=== PATIENT | female | born 1960 | race Caucasian/White ===

== ENCOUNTER 2024-05-10 07:28 | Emergency (ER) | payer OTHER, SELFPAY ==
[2024-05-10 07:30] VITALS: BP 119/77
--- NOTE | 2024-05-10 07:40 | ED.GENMED ---
History of Present Illness
General
Chief Complaint: Abdominal Pain
Source: patient
Exam Limitations: none
Time Seen by Provider: 05/10/24 07:33
Nursing documentation reviewed up to this point in time: agreed with
History of Present Illness
History of Present Illness:
64-year-old female with history of diverticulitis, endometriosis with laparoscopy and ablation, presents for being awakened at 3:30 AM with sudden onset pain across her lower abdomen from the bellybutton down. Pain now 8/10. She also has pressure
in her rectum and lower back. She had a small formed bowel movement last night. She denies fever or chills. Denies vomiting but does feel nauseous. Her last episode of diverticulitis was about 3 years ago and she states this feels similar.
Past History
Past History
ED Past Medical History: Other (Diverticulitis)
ED Past Surgical History: Gynecological (Laparoscopy and ablation for endometriosis)
Social History
Tobacco: Non-smoker
Alcohol: Occasional
Personal:
Living: with family
Employment: Employed
Review of Systems
Review of Systems
Allergies reviewed?: Yes
All Other Systems: ROS reviewed and negative except as documented in HPI and ROS
Constitutional: Denies fever or chills
Respiratory: Denies trouble breathing
Cardiac: Denies chest pain
ABD/GI: Reports abdominal pain and nausea; Denies vomiting, diarrhea, bloody stools or black stools
: Denies dysuria, frequency or difficulty voiding
Musculoskeletal: Reports no symptoms
Skin: Reports no symptoms
Neurological: Reports no symptoms
Phy Exam
Physical Exam
Physical Exam:
GENERAL: Mild distress due to abdominal pain. A&Ox3.
CONSTITUTIONAL: Afebrile.
EYES: clear, conjunctivae normal
ENMT: moist mucus membranes
RESPIRATORY: Regular respirations, nonlabored, lungs clear.
CARDIOVASCULAR: Regular rate and rhythm, no murmurs, no rubs.
GI: Soft, tender from mid lower abdomen to left lower abdomen, normal BS
MUSCULOSKELETAL: Moves with ease. Well perfused.
SKIN: Warm, dry, pink
PSYCH: Normal mood and affect. Well kept, interactive and appropriate
NEUROLOGIC: Awake, alert and oriented. No focal neurological deficits
Course
Orders/Labs/Results
Orders:
Orders
05/10/24 07:38
Ketorolac [Toradol] 15 mg IV NOW STA
05/10/24 07:39
CT Abd/Pel (IV only)-DH only Urgent
Comment:
Reason For Exam: pain across lower abd, hx divertic
0.9% Sodium Chloride 1000 ml [Nss] 1,000 ml IV BOLUS
Ondansetron Injectable [Zofran] 4 mg IV NOW STA
05/10/24 07:56
Complete Blood Count/With Diff Urgent
Comprehensive Metabolic Panel Urgent
Lipase Urgent
Urinalysis Reflex To Culture Urgent
Date Specimen was Collected: 05/10/24
Time Specimen was Collected: 07:46
Urine Microscopic Reflex Cult Urgent
Urine Culture Urgent
JEM Source: U
Specimen Description:
Date Specimen was Collected: 05/10/24
Time Specimen was Collected: 07:46
05/10/24 08:01
Morphine Sulfate 4 mg IV NOW STA
05/10/24 08:02
Morphine Sulfate 4 mg .ROUTE .STK-MED ONE
05/10/24 09:38
Amoxicillin 875 mg/Clav 125 mg [Augmentin 875 mg/125 mg] 1 tablet PO NOW STA
Abnormal Lab Results
05/10/24
07:56
RBC 3.87 L 10^6/uL
(4.20-5.40)
Hgb 11.5 L g/dL
(12.0-16.0)
Hct 34.3 L %
(37.0-47.0)
Absolute Lymphs (auto) 1.0 L 10^3/uL
(1.2-3.4)
Neutrophils % 78.4 H %
(42.2-75.2)
Lymphocytes % 13.1 L %
(20.5-51.1)
Leukocyte Esterase Rfl 1+ A
(Negative)
Urine Bacteria (Reflex) Few A
(Negative)
05/10/24 07:56
05/10/24 07:56
Vital Signs
Initial and Last Documented VS:
Initial Vital Signs
Temp Pulse Resp BP Pulse Ox
99.2 F 94 18 119/77 98
05/10/24 07:30 05/10/24 07:30 05/10/24 07:30 05/10/24 07:30 05/10/24 07:30
Last Documented Vital Signs
Temp Pulse Resp BP Pulse Ox
98.1 F 70 16 99/71 96
05/10/24 08:00 05/10/24 09:33 05/10/24 09:33 05/10/24 10:01 05/10/24 10:15
MDM/Problems Addressed
Differential Diagnosis Includes:
Diverticulitis, constipation, renal colic
MDM/Problems Addressed:
64-year-old female with history of diverticulitis, endometriosis with laparoscopy and ablation, presents for being awakened at 3:30 AM with sudden onset pain across her lower abdomen from the [facility] down. Pain now 8/10. She also has pressure
in her rectum and lower back. She had a small formed bowel movement last night. She denies fever or chills. Denies vomiting but does feel nauseous. Her last episode of diverticulitis was about 3 years ago and she states this feels similar.
Afebrile, NAD
Had a colonoscopy last year at [place]
9:15 AM:
CBC: No clinically significant abnormality
CMP normal
UA unremarkable
9:30 AM:
CT abdomen pelvis with IV only contrast radiology report read: Acute sigmoid diverticulitis. No CT evidence for perforation or pericolonic abscess.
Patient feeling much better after pain medications
Stable for discharge
Rx for Augmentin sent to her pharmacy
*Critical Care Note
Total Time (30-74mins, 75-104mins- exclusive of procedures): Not Applicable
ED Attending Note
-
Portions of this chart may have been created with voice recognition software.� Occasional wrong word or��sound alike� substitutions may have occurred due to the inherent limitations of voice recognition software.
Discharge Plan
Departure
Patient Disposition: Home (Routine Discharge)
Date of Disposition: 05/10/24
Time of Disposition: 09:38
Patient with high blood pressure during this ER visit?: No
Condition: Good
Discharge Problem:
Acute diverticulitis
Instructions: Clear Liquid Diet, Diverticulitis (DC)
Prescriptions:
New
amoxicillin-pot clavulanate 875-125 mg tablet
1 tab PO BID Qty: 19 0RF
tramadol 50 mg tablet
50 mg PO Q8H PRN (Reason: Pain) Qty: 7 0RF
No Action
naproxen sodium [Aleve] 220 MG tablet
1 - 2 tab PO [id number] PRN (Reason: lower back pain)
Referrals:
Karen Cyr MD [Active] - Next open appointment
Hector Crespo DO [Family Provider] -
Activity Restrictions/Additional Instructions:
As we discussed, clear liquid diet for today to give your bowel rest
Return here immediately for worsening abdominal pain, fever, vomiting or feeling sicker in any way
Otherwise call the GI doctors office and make next available appointment.
Tylenol as needed for pain
Interventions
Interventions:
*Risk Screen - Suicide Last Done: 05/10/24 08:00
*General Assessment Last Done: 05/10/24 08:00
*Neglect/Abuse Screening Last Done: 05/10/24 08:00
ED- Fall Risk Assessment Last Done: 05/10/24 08:00
*ED COVID-19 Vaccine History Last Done: 05/10/24 08:00
*Nursing Disposition Last Done: 05/10/24 10:16
SK-Oouzgc-Dbsmqnxoen Assessment Last Done: 05/10/24 08:00
Discharge Date and Time
Discharge Date/Time: 05/10/24 10:22
Print Language: [place]
[2024-05-10 08:00] VITALS: BP 109/62; BMI 22.7
[2024-05-10] MEDS: MORPHINE SULFATE 4 MG IV (08:02)
[2024-05-10] MEDS: ZOFRAN 4 MG IV (08:02)
[2024-05-10] MEDS: TORADOL 15 MG IV (08:03)
[2024-05-10 08:05] LABS: % Basophils 0.6 % (0-2); % Eosinophils 1.2 % (0-6); % Immature Granulocytes 0.4 % (0-0.5); % Lymphocytes 13.1 % (20.5-51.1); % Monocytes 6.3 % (1.7-9.3); % Neutrophils 78.4 % (42.2-75.2); Absolute Basophils 0.1 10^3/uL (0-0.2); Absolute Eosinophils 0.1 10^3/uL (0-0.7); Absolute Monocytes 0.5 10^3/uL (0.1-0.6); Absolute Neutrophils 6.1 10^3/uL (1.4-6.5); Hematocrit 34.3 % (37.0-47.0); Hemoglobin 11.5 g/dL (12.0-16.0); Mean Corp Hgb Conc. 33.5 g/dL (33.0-37.0); Mean Corpuscular Hgb 29.7 pg (27.0-31.0); Mean Corpuscular Volume 88.6 fL (81.0-99.0); Mean Platelet Volume 10.1 fL (7.4-10.4); Nucleated Red Blood Cells % 0 %; Platelet Count 241 10^3/uL (130-400); Red Blood Cell Count 3.87 10^6/uL (4.20-5.40); Red Cell Dist. Width 12.5 % (11.5-14.5); White Blood Cell Count 7.7 10^3/uL (4.8-10.8)
[2024-05-10] MEDS: NSS 1000 IV (08:06)
[2024-05-10 08:07] LABS: Urine Albumin Negative (Neg - Trace); Urine Bilirubin Negative (Negative); Urine Character Clear (Clear); Urine Color Yellow; Urine Glucose Negative (Negative); Urine Ketone Negative (Negative); Urine Leukocyte 1+ (Negative); Urine Nitrite Negative (Negative); Urine Occult Blood Negative (Negative); Urine Urobilinogen Negative (Neg - 1+)
[2024-05-10 08:22] LABS: ALT (SGPT) 14 U/L (0-35); AST (SGOT) 18 U/L (14-36); Albumin 4.2 g/dl (3.5-5.0); Alkaline Phosphatase 81 U/L (38-126); Blood Urea Nitrogen 16 mg/dl (7-17); Calcium 9.3 mg/dl (8.4-10.2); Carbon Dioxide 30 mmol/L (22-30); Chloride 103 mmol/L (98-107); Estimated Creatinine Clearance 81 ml/min; Glucose 97 mg/dl (70-99); Potassium 4.1 mmol/L (3.5-5.1); Sodium 139 mmol/L (135-145); Total Protein 6.6 g/dl (6.3-8.2); eGFR > 60.00
[2024-05-10 08:25] LABS: Urine Mucus Few; Urine Squamous Cell >30 /LPF (Few)
[2024-05-10 08:26] LABS: Urine Bacteria Few (Negative)
[2024-05-10 08:27] LABS: Urine Red Blood Cell 0-2 /HPF (0-2)
[2024-05-10 09:21] VITALS: BP 108/83
[2024-05-10 09:21] LABS: Lipase 92 U/L (23-300)
[2024-05-10 09:33] VITALS: BP 108/83
[2024-05-10 10:01] VITALS: BP 99/71
[2024-05-10] MEDS: AUGMENTIN 875 MG/125 MG 1 TABLET PO (10:19)
== END 2024-05-10 10:22 | disposition home or self-care (01) ==
LOC: EMR 07:28
PROVIDERS: Registered Nurse; EMERGENCY PHYSICIAN Emergency Medicine; FAMILY PHYSICIAN Family Medicine
DX: K57.32 Diverticulitis of large intestine without perforation or abscess without bleeding (principal)
CPT/HCPCS: 96374; 96375; 96361; 99284; 74177; 80053; 81003; 81015; 83690; 85025; 87086; Q9967

== ENCOUNTER 2025-01-10 21:43 | Emergency (ER) | payer OTHER, SELFPAY ==
[2025-01-10 21:45] VITALS: BP 113/68
[2025-01-10 22:10] LABS: Urine Character Clear (Clear)
[2025-01-10 22:12] LABS: Hematocrit 36.6 % (37.0-47.0); Hemoglobin 12.1 g/dL (12.0-16.0); Mean Corp Hgb Conc. 33.1 g/dL (33.0-37.0); Mean Corpuscular Volume 88.2 fL (81.0-99.0); Nucleated Red Blood Cells % 0 %; Platelet Count 265 10^3/uL (130-400); Red Cell Dist. Width 12.8 % (11.5-14.5)
[2025-01-10 22:26] LABS: ALT (SGPT) 23 U/L (0-35); AST (SGOT) 29 U/L (14-36); Albumin 4.6 g/dl (3.5-5.0); Alkaline Phosphatase 67 U/L (38-126); Blood Urea Nitrogen 17 mg/dl (7-17); Calcium 9.9 mg/dl (8.4-10.2); Carbon Dioxide 31 mmol/L (22-30); Chloride 100 mmol/L (98-107); Glucose 94 mg/dl (70-99); Lipase 158 U/L (23-300); Potassium 3.6 mmol/L (3.5-5.1); Sodium 136 mmol/L (135-145); Total Protein 7.4 g/dl (6.3-8.2); eGFR > 60.00
[2025-01-10 22:30] LABS: Urine Red Blood Cell 0-2 /HPF (0-2)
[2025-01-11 00:29] VITALS: BMI 22.0
--- NOTE | 2025-01-11 00:30 | EDRN ---
Pt felt fine until when she developed lower abdominal pain, nausea then diarrhea followed by a headache. Pt with hx diverticulitis and says it feels similar except she has b/l back pain which is not usual for her. Pain is almost gone
from abdomen currently but b/l back pain remains. Pt feels pressure to urinate. No burning or blood with urination. No fever/chills/cough, cp, sob, vomiting, weakness, dizziness. Pt did not take anything for pain. No change in appetite. Last
diarrhea around 2099. No ill contacts.
[2025-01-11 00:35] VITALS: BP 110/72
[2025-01-11 01:15] VITALS: BP 117/89
--- NOTE | 2025-01-11 02:50 | ED.GENMED ---
History of Present Illness
General
Chief Complaint: Abdominal Pain
Source: patient and spouse
Exam Limitations: none
Time Seen by Provider: 01/11/25 01:01 EDT
Nursing documentation reviewed up to this point in time: agreed with
Past History
Past History
ED Past Medical History: Other (Diverticulitis)
ED Past Surgical History: Gynecological (Laparoscopy and ablation for endometriosis)
Social History
Tobacco: Non-smoker
Alcohol: Occasional
Personal:
Living: with family
Employment: Employed
Phy Exam
Physical Exam
Physical Exam:
.
Course
Orders/Labs/Results
Orders:
Orders
01/10/25 22:02
Complete Blood Count/With Diff Urgent
Comprehensive Metabolic Panel Urgent
Lipase Urgent
Urinalysis Reflex To Culture Urgent
Date Specimen was Collected: 01/10/25
Time Specimen was Collected: 21:55
Urine Microscopic Reflex Cult Urgent
Urine Culture Urgent
JEM Source: U
Specimen Description:
Date Specimen was Collected: 01/10/25
Time Specimen was Collected: 21:55
01/11/25 01:14
CT Abd/pelvis W Iv Cont Urgent
Comment:
Reason For Exam: LLQ, L flank pain
Abnormal Lab Results
01/10/25
22:02
RBC 4.15 L 10^6/uL
(4.20-5.40)
Hct 36.6 L %
(37.0-47.0)
Carbon Dioxide 31 H mmol/L
(22-30)
Leukocyte Esterase Rfl 1+ A
(Negative)
Urine Bacteria (Reflex) Few A
(Negative)
01/10/25 22:02
01/10/25 22:02
Vital Signs
Initial and Last Documented VS:
Initial Vital Signs
Temp Pulse Resp BP Pulse Ox
98.2 F 70 16 113/68 97
01/10/25 21:45 01/10/25 21:45 01/10/25 21:45 01/10/25 21:45 01/10/25 21:45
Last Documented Vital Signs
Temp Pulse Resp BP Pulse Ox
97.9 F 57 14 117/89 100
01/11/25 00:35 01/11/25 01:15 EST 01/11/25 01:15 EST 01/11/25 01:15 EST 01/11/25 01:15 EST
*Radiology
Radiology exam reviewed: radiology read reviewed
*Pulse Oximetry
SaO2: 100
Oxygen Mode of Delivery: Room air
Patient hypoxic: no
*Critical Care Note
Total Time (30-74mins, 75-104mins- exclusive of procedures): Not Applicable
Update Note
Update Note:
NAME: MARGIE ANAYA
DATE OF EXAM: 01/11/2025
Patient No: [id number]
Physician: EVARISTO^Mitzi
Date of : 1960
Past Medical History (entered by Technologist):
Reason For Exam (entered by Technologist):
Other Notes (entered by Technologist): Pt c/o sever lower abd pain and pressure. Pt has hx diverticulitis. Pt c/o lower back pain. Pt c/o a headache. Pt states col[place] all started with the lower abd pain. No burning on voiding.
Prior sent
Additional Information (per [facility]):
CT ABDOMEN AND PELVIS WITH IV CONTRAST
IMPRESSION
No specific findings to account for the patient's abdominal pain.
Normal appendix.
No renal or obstructing ureteral stones. No hydronephrosis or hydroureter.
Bowel is without evidence of obstruction. Diverticulosis without evidence of diverticulitis.
Gallbladder is unremarkable. No obvious stones but CT has a diminished sensitivity for noncalcified gallstones. No biliary dilatation.
No adnexal masses or significant free fluid
Case finalized on 01/11/25 02:37 EDT
Candice Odonnell M.D.
This report has been electronically signed and verified by the Radiologist whose name is printed above.
ED Attending Note
-
Portions of this chart may have been created with voice recognition software.� Occasional wrong word or��sound alike� substitutions may have occurred due to the inherent limitations of voice recognition software.
Discharge Plan
Departure
Patient Disposition: Home (Routine Discharge)
Date of Disposition: 01/11/25
Time of Disposition: 02:51
Patient with high blood pressure during this ER visit?: Yes
Discharge Problem:
Abdominal pain
Instructions: Abdominal Pain, BLOOD PRESSURE
Prescriptions:
No Action
No Current Medications
0
Referrals:
Hector Crespo DO [Family Provider, [facility]]
Activity Restrictions/Additional Instructions:
Thank You for choosing [facility].
It was a pleasure meeting you and taking part in your care. We hope for your continued healing and wellness.
Please read discharge instructions in their entirety. However, they are for general education and may not describe your exact diagnosis at discharge. Information on your ER visit and medical conditions were discussed with you along with appropriate
follow up information...
If indicated, please take your medications as instructed and indicated on discharge paperwork.
Please schedule a follow up appointment as directed. Call to schedule an appointment
Please return to the emergency department with ANY change in, persisting, or worsening of symptoms. If any of your symptoms do not improve, or persist, or become more severe within 6-12 hours, please return to the emergency department for further
care.
Please return to the emergency department if you develop a headache, neck pain/stiffness, fever greater than 100.4F, chest pain, shortness of breath, persistent nausea, vomiting, slurred speech, difficulty walking, numbness/tingling, weakness, signs
of infection or any other symptoms that are worrisome to you.
If you have any questions or concerns please do not hesitate to call the Hospital at .
Interventions
Interventions:
*Risk Screen - Suicide Last Done: 01/10/25 21:45
*General Assessment Last Done: 01/10/25 21:45
*Neglect/Abuse Screening Last Done: 01/10/25 21:45
*ED- Fall Risk Assessment Last Done: 01/10/25 21:45
*ED COVID-19 Vaccine History Last Done: 01/10/25 21:53
*ED Influenza Vaccine History Last Done: 01/10/25 21:45
WC-Nsoosh-Cwomlnuznj Assessment Last Done: 01/11/25 00:40
Discharge Date and Time
Print Language: JORDANIAN
[2025-01-11 03:10] VITALS: BP 105/79
== END 2025-01-11 03:15 | disposition home or self-care (01) ==
LOC: EMR 21:43
PROVIDERS: Emergency Medicine; EMERGENCY PHYSICIAN Student in an Organized Health Care Education/Training Program; FAMILY PHYSICIAN Family Medicine
DX: R10.32 Left lower quadrant pain (principal); K57.30 Diverticulosis of large intestine without perforation or abscess without bleeding
CPT/HCPCS: 99284; 74177; 80053; 81003; 81015; 83690; 85025; 87086; Q9967